=== PATIENT | female | born 1970 | race Caucasian/White ===

== ENCOUNTER 2023-09-06 07:36 | Emergency (ER) | payer BC, SELFPAY ==
--- NOTE | 2023-09-06 07:30 | DI.RAD_ITS ---
Exam(s) XR SHOULDER LT COMPLETE 2+V EXAM: XR SHOULDER LT COMPLETE 2+V CLINICAL HISTORY: recent rotator cuff repair, severe pain this am. TECHNIQUE: 2D digital imaging was performed. Three views. COMPARISON: No exams were available for comparison FINDINGS: BONES: No acute fracture is present. No bony destructive lesion is seen. JOINTS: No dislocation present. Mild degenerative changes at the AC joint and glenohumeral joint. SOFT TISSUE: Normal. IMPRESSION: No acute abnormality. DATA REPOSITORY: RADIATION DOSE DELIVERED:
[2023-09-06 07:32] VITALS: BP 183/72; PULSE 75; RESP 18; TEMP 36.9; O2SAT 98
--- NOTE | 2023-09-06 07:44 | W.ED.GENAD ---
Discharge Plan Disposition Patient Disposition: Home Condition: Stable Discharge Details Clinical Impression: Shoulder pain Primary Care Provider: Unknown,Unknown ED Provider: Thomas Vieyra Home Meds and New Rx's Prescriptions: New ketorolac 10 mg tablet 10 mg PO Q8H PRNQty: 14 0RF cyclobenzaprine 5 mg tablet 5 mg PO QHS PRN (Reason: muscle spasm) Qty: 7 0RF lidocaine [Lidoderm] 5 % adhesive patch,medicated 1 patch topical DAILY Qty: 15 0RF Rx Instructions: leave on most painful area for up to 12 hrs No Action bupropion HCl 150 mg tablet extended release 24 hr 150 mg PO DAILY amlodipine 5 mg tablet 5 mg PO DAILY doxycycline monohydrate 50 mg capsule 50 mg PO DAILY methocarbamol 500 mg tablet 500 mg PO Q8H aspirin 325 mg tablet,delayed release (DR/EC) 325 mg PO DAILY ibuprofen 800 mg tablet 800 mg PO TID oxycodone 5 mg tablet 5 mg PO Q6H acetaminophen 500 mg capsule 500 mg PO Q6H PRN Discharge Instructions Instructions: Shoulder Pain (ED) Additional Instructions: Please follow-up with orthopedic team as soon as possible. Return to emergency department for worsening symptoms Medical Decision Making 52-year-old female postop day 4 from left rotator cuff surgery, performed at [facility] [place], presents with excruciating pain this morning atraumatic, afebrile nontoxic resting more comfortably after receiving medications by EMS, surgical site clean dry intact, neurovascular exam of limb intact, no definitive trauma appreciated from history and physical. No evidence of infection as patient is afebrile without local induration crepitus or fluctuance. Will obtain screening x-ray of shoulder, will provide analgesia anti-inflammatory. Will encourage close follow-up with orthopedic team at [facility]. 9: 28 patient getting some relief from meds given. Will follow-up closely with orthopedic team. Home care instructions and return precautions given HPI General Date/Time Provider Initiated Documentation: 09/06/23 07:38. HPI Narrative: 52-year-old female postop day 4 from rotator cuff surgery performed at [facility] [place], presents awaking with excruciating left shoulder pain, has been sleeping in her sling in a recliner, denies trauma. Denies fevers chills nausea vomiting or other systemic signs of illness. Has been doing her pendulum exercises. Recently completed her last oxycodone given postop. Pain has been well-managed up until this morning. Related Data Home Medications Medication Instructions Recorded Confirmed acetaminophen 500 mg capsule 500 mg PO Q6H PRN 09/06/23 09/06/23 amlodipine 5 mg tablet 5 mg PO DAILY 09/06/23 09/06/23 aspirin 325 mg tablet,delayed 325 mg PO DAILY 09/06/23 09/06/23 release bupropion HCl 150 mg 24 hr tablet, 150 mg PO DAILY 09/06/23 09/06/23 extended release cyclobenzaprine 5 mg tablet 5 mg PO QHS PRN muscle spasm #7 09/06/23 tabs doxycycline monohydrate 50 mg 50 mg PO DAILY 09/06/23 09/06/23 capsule ibuprofen 800 mg tablet 800 mg PO TID 09/06/23 09/06/23 ketorolac 10 mg tablet 10 mg PO Q8H PRN #14 tabs 09/06/23 lidocaine 5 % topical patch 1 patch topical DAILY #15 ea 09/06/23 (Lidoderm) methocarbamol 500 mg tablet 500 mg PO Q8H 09/06/23 09/06/23 oxycodone 5 mg tablet 5 mg PO Q6H 09/06/23 09/06/23 Previous Rx's Medication Instructions Recorded cyclobenzaprine 5 mg tablet 5 mg PO QHS PRN muscle spasm #7 09/06/23 tabs ketorolac 10 mg tablet 10 mg PO Q8H PRN #14 tabs 09/06/23 lidocaine 5 % topical patch 1 patch topical DAILY #15 ea 09/06/23 (Lidoderm) Allergies Allergy/AdvReac Type Severity Reaction Status Date / Time stevenson Allergy Intermediate Unverified 09/06/23 07:41 General Stated Complaint: Orthopedic GUCCI: 4 Review of Systems Narrative: Review of Systems Constitutional: negative Eyes: negative ENT: negative Cardiovascular: negative Respiratory: negative Gastrointestinal: negative : negative Musculoskeletal: Shoulder pain Skin: negative Neurologic: negative Psych: negative PFSH All Active Problems (Updated 09/06/23 @ 09:29 by Thomas Vieyra MD) Shoulder pain (Acute) Social History Smoking/Tobacco Use Status: Never Smoking risk assessment performed?: Yes Alcohol Intake: current Alcohol Intake frequency: a few times a month Substance use type: does not use Housing: house Do you feel safe at home: Yes Do you feel safe in your relationship?: Yes Exam Narrative Exam Narrative: Physical Examination General: alert, awake, cooperative, resting comfortably, no acute distress HEENT: normocephalic, atraumatic; PERRL, EOM intact, conjunctiva normal; no nasal discharge; moist mucous membranes, oral and pharyngeal mucosa normal, tolerating secretions Neck: supple, trachea midline; full ROM Chest: normal to inspection Respiratory: normal respiratory effort, speaking in full sentences, clear to auscultation, no wheezing, rales or rhonchi Cardiac: regular rate, regular rhythm, S1S2 intact, no murmurs rubs or gallops GI: abdomen soft, non-tender, non-distended; no palpable mass or hepatosplenomegaly Skin: no lesions, rashes or trauma appreciated Neuro: AAOx3, normal speech, moving all extremities Extremities: Operative port sites clean dry intact no crepitus induration or fluctuance appreciated; neurovascular exam of left upper extremity intact with good sensation and perfusion as well as motor function in the hand Psych: Appropriate mood and affect Course Vital Signs Vital signs: Vital Signs Temperature 36.9 C 09/06/23 07:32 Pulse 75 09/06/23 07:32 Respiratory Rate 18 09/06/23 07:32 Blood Pressure 183/72 H 09/06/23 07:32 Pulse Oximetry 98 09/06/23 07:32 Temperature 36.9 C 09/06/23 07:32 Temperature Source Temporal Artery Scan 09/06/23 07:32 Pulse 75 09/06/23 07:32 Respiratory Rate 18 09/06/23 07:32 Respiratory Effort Normal, Non-Labored 09/06/23 07:36 Blood Pressure 183/72 H 09/06/23 07:32 Pulse Oximetry 98 09/06/23 07:32 Pain Level 8 09/06/23 07:32 PAWSS Have you Been Recently Intoxicated or Drunk Within the Last 30 days?: No Have you Ever Experienced Previous Episodes of Alcohol Withdrawal?: No Have you ever Experienced Withdrawal Seizures?: No Have you ever Experienced Delirium Tremens(DT)s?: No Have you ever undergone Alcohol Rehabilitation Treatment (i.e, inpt ot outpatient treatment programs)?: No Have you ever Experienced Blackouts?: No Have you ever Combined Alcohol with other Downers within the last 90 days?: No Have you ever Combined Alcohol with any other Substance of Abuse during the last 90 days?: No Positive Blood Alcohol level on Presentation? [PCS.BAL]: No Evidence of Increased Autonomic Activity (i.e. HR>120, tremor, sweating, agitation, nausea)?: No Result: 0
[2023-09-06] MEDS: Cyclobenzaprine 10 MG TAB PO (07:54)
[2023-09-06] MEDS: Ketorolac 15 MG/ML VIAL IVP (07:54)
[2023-09-06] MEDS: ACETAMINOPHEN 1,000 MG/100 ML BTL 400 MG IVPB (07:54)
--- NOTE | 2023-09-06 09:18 | DI.VRAD_ITS ---
PROCEDURE INFORMATION: Exam: XR Left Shoulder Exam date and time: 09/06/2023 8:08 AM Age: 52 years old Clinical indication: Pain; Shoulder; Bilateral; Prior surgery; Surgery date: 3-7 days post-operative; Surgery type: 09/02/23 rotator repair; Additional info: Best obtainable images due to pain and limited motion TECHNIQUE: Imaging protocol: Radiologic exam of the left shoulder. Views: 2 or more views. COMPARISON: No relevant prior studies available. FINDINGS: Limitations: The patient could not be position properly because of pain. Bones/joints: Examination negative fracture or dislocation. There is narrowing of the acromial humeral distance. Small osteophytes of the joint margins. Soft tissues: Mild soft tissue edema superior to the acromion. IMPRESSION: 1. Moderate left shoulder arthrosis. 2. Mild soft tissue edema. Dictated and Authenticated by: Daniel Ray MD. Ordering:GIANFRANCO Guzman MD
[2023-09-06 10:20] VITALS: BP 161/62; PULSE 67; RESP 16; O2SAT 98
== END 2023-09-06 10:21 | disposition home or self-care (01) ==
LOC: ER 10:28
PROVIDERS: Emergency Provider Emergency Medicine
DX: M25.512 Pain in left shoulder (principal); G89.18 Other acute postprocedural pain; Z79.82 Long term (current) use of aspirin
CPT/HCPCS: 96374; 96375; 99283; 73030; J0131; J1885